=== PATIENT | female | born 1945 | race Caucasian/White ===

== ENCOUNTER → 2020-01-17 09:26 | Outpatient (BNVA) | payer MEDICARE, SELFPAY | PROVIDERS: PCP Internal Medicine; Referring Provider Internal Medicine; Visit Provider Hospitalist | DX: R91.8 Other nonspecific abnormal finding of lung field (principal); J30.9 Allergic rhinitis, unspecified | CPT/HCPCS: 99214 ==

== ENCOUNTER → 2021-08-27 10:52 | Outpatient (BNVA) | payer MEDICARE, SELFPAY | PROVIDERS: PCP Internal Medicine; Visit Provider Hospitalist | DX: R91.8 Other nonspecific abnormal finding of lung field (principal); R05.9 Cough, unspecified; J30.9 Allergic rhinitis, unspecified | CPT/HCPCS: 99212 ==

== ENCOUNTER 2021-09-10 08:42 | Outpatient (REF) | payer MEDICARE, SELFPAY ==
--- NOTE | ~2021-09-10 | US_ITS ---
EXAMINATION: US ABDOMEN LIMITED CLINICAL INFORMATION: Liver disease, unspecified. COMPARISON: CT chest 08/13/2021 and 12/26/2019. TECHNIQUE: Real-time imaging of the right upper quadrant abdominal viscera. FINDINGS: PANCREAS: Normal. LIVER: The liver is normal in size. The liver contour is normal. There is a left hepatic lobe solid, hypoechoic lesion measuring 2.7 x 1.9 x 2.5 cm with vascular flow. No additional lesions are seen. There is no intrahepatic biliary duct dilatation seen. GALLBLADDER: Normal. The gallbladder is physiologically distended without evidence of stones, sludge, polyps, wall thickening or pericholecystic fluid. COMMON BILE DUCT: Normal in caliber measuring 0.2 cm in diameter. RIGHT KIDNEY: Normal. No hydronephrosis. No renal calculi or focal parenchymal lesions. The kidney measures 10.2 cm in maximum dimension. FREE FLUID: None. US/US abdomen limited IMPRESSION: Solid, hypoechoic lesion of the left hepatic lobe measuring 2.7 cm. On the previous CT chest of 08/13/2021 it measured 2.5 cm. It does not have characteristics of a benign lesion such as a hemangioma. Recommend further evaluation with MRI abdomen with and without contrast.
== END 2021-09-10 08:43 | disposition home or self-care (01) ==
LOC: HO.US 08:42
PROVIDERS: Absent Provider Internal Medicine; PCP Internal Medicine; Visit Provider Hospitalist
DX: K76.9 Liver disease, unspecified (principal)
CPT/HCPCS: 76705

== ENCOUNTER 2022-01-20 08:59 | Outpatient (REF) | payer MEDICARE, SELFPAY ==
--- NOTE | ~2022-01-20 | CT_ITS ---
EXAMINATION: CT CHEST WITHOUT CONTRAST CLINICAL INFORMATION: Follow-up pulmonary nodules COMPARISON: Previous chest CT August 2021 TECHNIQUE: Multidetector volumetric CT imaging of the chest was done. Axial MIP volume rendering provided. Sagittal and coronal reformatted images were obtained. This CT examination was performed using dose optimization techniques as appropriate, variously including the following: *Automated exposure control *Adjustment of mA and/or kV according to patient size (this includes techniques or standardized protocols for targeted exams where dose is matched to indication/reason for exam; i.e. extremities or head) *Use of iterative reconstruction technique DLP: 110 mGy-cm FINDINGS: LUNGS: There is biapical pleural and parenchymal scarring. The bilateral pulmonary nodules are stable. Largest pulmonary nodule is a 7 mm right lower lobe nodule axial image 312 series 7. This is triangular in shape and may represent an intrapulmonary lymph node. No new pulmonary nodule. No endobronchial or endotracheal lesion. MEDIASTINUM: The mediastinum is normal. CORONARY ARTERY CALCIFICATION: Mild PLEURA: There is no pleural effusion. No pleural mass or thickening. AXILLA: No lymphadenopathy. Bilateral breast implants. UPPER ABDOMEN: New postsurgical changes to the left lobe of the liver. OSSEOUS STRUCTURES: Unremarkable. CT/CT chest wo IV con IMPRESSION: Stable biapical pleural and parenchymal scarring. Stable pulmonary nodules. New postsurgical changes to the left lobe of the liver. Fleischner guidelines were followed.
== END 2022-01-20 09:00 | disposition home or self-care (01) ==
LOC: HO.CT 08:59
PROVIDERS: PCP Internal Medicine; Visit Provider Hospitalist
DX: R91.8 Other nonspecific abnormal finding of lung field (principal)
CPT/HCPCS: 71250

== ENCOUNTER → 2022-02-19 10:18 | Outpatient (BNVA) | payer MEDICARE, SELFPAY | PROVIDERS: PCP Internal Medicine; Visit Provider Hospitalist | DX: R91.8 Other nonspecific abnormal finding of lung field (principal); J30.9 Allergic rhinitis, unspecified; R05.9 Cough, unspecified | CPT/HCPCS: 99212 ==

== ENCOUNTER 2023-07-06 10:25 | Outpatient (AMB) | payer MEDICARE, SELFPAY ==
--- NOTE | 2023-07-06 10:33 | A.OFFVIS_ITS ---
Intake Vital Signs 07/06/23 10:34 Height 5 ft 5 in Weight 129 lb BMI 21.5 BP 128/70 Blood Pressure Location Lt brachial Position Sitting Pulse 88 Pulse Source Pulse Oximeter Pulse Oximetry (%) 97 Oxygen Delivery Method Room Air Intake Visit Reasons: Pulmonary nodule Spiral Machine Operator Required: No Allergies amoxicillin Allergy (Mild, Verified 07/06/23 10:36) Swelling lips and tongue lisinopril Adverse Reaction (Severe, Verified 07/06/23 10:39) Swelling Aspirin Allergy (Mild, Uncoded 07/06/23 10:36) Dehydrate and GI Bleed Creon 10 Allergy (Mild, Uncoded 07/06/23 10:36) votmitting Mold Allergy (Mild, Uncoded 07/06/23 10:36) Hives HPI HPI Comments History of Present Illness Details The patient is a 77-year-old woman with known history of pulmonary nodules. Overall the patient has been doing well from a respiratory status. Denies any shortness of breath or coughing. Unfortunately over the summer she did develop significant abdominal discomfort. She was admitted to [facility] with colitis. She is following up with GI for this. She did have a CT scan of the abdomen with lung cuts that appeared to be normal. In addition to that she did undergo a CT scan of the chest to follow-up pulmonary nodules. They appear to be stable when compared to CT scans from 2017. the largest nodule measuring 5 mm. Findings are reassuring the nodules are likely to be benign. 08/27/2021 the patient is here for a pulmonary follow-up visit. Overall she continues to do well. Denies any significant shortness of breath. She does have intermittent coughing. The cough tends to be nonproductive in nature. Seems to be getting better. She is on RAMON-inhibitor and she did discuss with her primary care did regarding switching it regarding changing to a different agent. But it was decided just to keep her on the Ramon inhibitors is a better medication for her. we did review her recent CT scan of the chest which is reassuring without any evidence of any airway disease to explain her cough. Most of her pulmonary nodules appear to be stable. She does have a triangular shaped pulmonary nodule in the right lower lobe that appeared to be slightly increased in size to 7 mm. Radiology did recommend a close follow-up. In addition to that it was noted that she did have a hypoattenuation in the liver suggesting Density. Radiology did recommend getting ultrasound of the liver. I will go ahead and request it. 02/19/2022 the patient is here for a pulmonary follow-up visit. Since we last spoke she underwent an ultrasound of the liver which demonstrated a lesion. Subsequently was diagnosed with hepatocellular carcinoma and she did undergo surgery. The patient now is completing 8 cycles of chemotherapy. She does have issues with neuropathy and nausea. She is working to her symptoms. Denies any significant shortness of breath O she has been fatigued. The patient has had some weight loss as well. She did undergo a CT scan of the chest recently to follow-up pulmonary nodules. Appears that her pulmonary nodules have not changed there is stable. In view of her new diagnosis of hepatocellular carcinoma will go ahead and repeat the CT scan again in 1 year. If however the patient develops any new or concerning symptoms she is to call the office for an earlier assessment. 07/06/2023 the patient is here for a pulmo nary follow-up visit. Overall the patient has been doing very well. She did complete her chemotherapy after her surgery for hepatocellular carcinoma. She is not being followed every [address] scan of the chest and abdomen. She has underlying pulmonary nodules. The largest nodule measuring 7 mm in size. As not changed for more than 2 years. Unlikely to be related to the malignant process although will continue to be monitored every 6 months by her oncologist in [place]. From a respiratory status the patient is doing well she does take beta you denies any cough or wheezing. The patient does have increased heart rate. It has not clear why she has sinus tachycardia. I did recommend once her follow-up with her oncologist is okay that she request a referral for cardiology evaluation to further address the persistent tachycardia. She will follow-up in a year's time. If she is doing well she can always follow-up as needed as well. [facility] Medical History (Updated 07/06/23 @ 10:51 by Tevin Phillips MD) Hepatocellular carcinoma Liver lesion Cough Chronic allergic rhinitis Colitis Pulmonary nodules Family History (Updated 01/17/20 @ 10:13 by Tevin Phillips MD) Father No problems noted. Social History (Updated 08/27/21 @ 11:06 by Daniela Bajwa Lou) Patient Tobacco Use Status: Never used Tobacco Review of Systems Const Denies night sweats and Denies weight loss ENT Denies change in voice, Denies lip swelling, Denies mouth pain, Reports nasal congestion, Reports nasal discharge and Denies tongue swelling Card Denies chest pain Resp Denies cough GI Denies abdominal pain and Reports nausea Musc Denies no additional complaints Neuro Denies Neuro-related abnormal movements Psych Denies no additional complaints Roberto/Lymph Denies easy bleeding and Denies lymphadenopathy Aller/Immun Denies lip swelling and Denies tongue swelling Physical Exam Vital Signs: Last Vital Signs Pulse 88 07/06/23 10:34 BP 128/70 07/06/23 10:34 Pulse Ox 97 07/06/23 10:34 Oxygen Delivery Method Room Air 07/06/23 10:34 BMI result Body Mass Index 21.5 Const General: alert HEENT General nose exam: Abnormal external nose present and Nasal discharge present Eyes Pupils: Equal, round and reactive pupils present Neck Neck: Yes normal visual inspection, Yes full ROM and Yes no lymphadenopathy Chest Chest palpation & inspection: normal inspection of the chest Resp Auscultation: clear to auscultation bilaterally Cardio Rate: regular rate Rhythm: regular rhythm Heart sounds: S1 normal heart sound present and S2 normal heart sound present GI Palpation (GI): Soft to palpation and nontender Auscultation: normal bowel sounds General: Yes no CVA tenderness Back/Spine/Pelvis Back: no CVA tenderness Skin General skin exam: rashes and/or lesions noted Neuro Cranial nerves: Yes Equal, round and reactive pupils present Extrem General: Yes no clubbing, cyanosis or edema Assessment & Plan Assessment & Plan (1) Pulmonary nodules: Code(s): R91.8 - Other nonspecific abnormal finding of lung field (2) Chronic allergic rhinitis: Code(s): J30.9 - Allergic rhinitis, unspecified Plan: Nasal rinsing (3) Cough: Code(s): R05 - Cough Qualifiers: Cough type: chronic Qualified Code(s): R05.3 - Chronic cough Plan CT chest every 6 months as per her Oncologist Exercise regimen F/U in 1 year or PRN Coding Level of Care Code Est Pt Level 4 (49727) Diagnoses Pulmonary nodules R91.8 Chronic allergic rhinitis J30.9 Chronic cough R05.3 Cough type: chronic Time Spent (min) 16
[2023-07-06 10:34] VITALS: BP 128/70; PULSE 88; O2SAT 97; BMI 21.5
== END 2023-07-06 11:01 | disposition home or self-care (01) ==
PROVIDERS: PCP Internal Medicine; Referring Provider Internal Medicine; Visit Provider Hospitalist
DX: R91.8 Other nonspecific abnormal finding of lung field (principal); J30.9 Allergic rhinitis, unspecified; R05.3 Chronic cough
CPT/HCPCS: 99214

== ENCOUNTER → 2023-07-06 10:25 | Outpatient (BNVA) | payer MEDICARE, SELFPAY | PROVIDERS: PCP Internal Medicine; Visit Provider Hospitalist | DX: R91.8 Other nonspecific abnormal finding of lung field (principal); J30.9 Allergic rhinitis, unspecified; R05.3 Chronic cough | CPT/HCPCS: 99212 ==

== ENCOUNTER 2024-09-29 08:21 | Outpatient (AMB) | payer MEDICARE, SELFPAY ==
[2024-09-29 08:24] VITALS: BP 126/70; PULSE 89; O2SAT 97; BMI 22.0
--- NOTE | 2024-09-29 08:24 | A.OFFVIS_ITS ---
Vital Signs 09/29/24 08:24 Height 5 ft 5 in Weight 132 lb 4.438 oz BMI 22.0 BP 126/70 Blood Pressure Location Lt brachial Position Sitting Pulse 89 Pulse Source Pulse Oximeter Pulse Oximetry (%) 97 Oxygen Delivery Method Room Air Intake Visit Reasons: Review CT scans Physician Assistant Surgery Required: No Accompanied by: Self / Same As Patient Allergies amoxicillin Allergy (Mild, Verified 09/29/24 08:29) Swelling lips and tongue lisinopril Adverse Reaction (Severe, Verified 09/29/24 08:29) Swelling Aspirin Allergy (Mild, Uncoded 07/06/23 10:36) Dehydrate and GI Bleed Creon 10 Allergy (Mild, Uncoded 07/06/23 10:36) votmitting Mold Allergy (Mild, Uncoded 07/06/23 10:36) Hives HPI Comments Details: The patient is a 78-year-old woman with known history of pulmonary nodules. Overall the patient has been doing well from a respiratory status. Denies any shortness of breath or coughing. Unfortunately over the summer she did develop significant abdominal discomfort. She was admitted to [facility] with colitis. She is following up with GI for this. She did have a CT scan of the abdomen with lung cuts that appeared to be normal. In addition to that she did undergo a CT scan of the chest to follow-up pulmonary nodules. They appear to be stable when compared to CT scans from 2017. the largest nodule measuring 5 mm. Findings are reassuring the nodules are likely to be benign. 08/27/2021 the patient is here for a pulmonary follow-up visit. Overall she continues to do well. Denies any significant shortness of breath. She does have intermittent coughing. The cough tends to be nonproductive in nature. Seems to be getting better. She is on RAMON-inhibitor and she did discuss with her primary care did regarding switching it regarding changing to a different agent. But it was decided just to keep her on the Ramon inhibitors is a better medication for her. we did review her recent CT scan of the chest which is reassuring without any evidence of any airway disease to explain her cough. Most of her pulmonary nodules appear to be stable. She does have a triangular shaped pulmonary nodule in the right lower lobe that appeared to be slightly increased in size to 7 mm. Radiology did recommend a close follow-up. In addition to that it was noted that she did have a hypoattenuation in the liver suggesting Density. Radiology did recommend getting ultrasound of the liver. I will go ahead and request it. 02/19/2022 the patient is here for a pulmonary follow-up visit. Since we last spoke she underwent an ultrasound of the liver which demonstrated a lesion. Subsequently was diagnosed with hepatocellular carcinoma and she did undergo surgery. The patient now is completing 8 cycles of chemotherapy. She does have issues with neuropathy and nausea. She is working to her symptoms. Denies any significant shortness of breath O she has been fatigued. The patient has had some weight loss as well. She did undergo a CT scan of the chest recently to follow-up pulmonary nodules. Appears that her pulmonary nodules have not hugo nged there is stable. In view of her new diagnosis of hepatocellular carcinoma will go ahead and repeat the CT scan again in 1 year. If however the patient develops any new or concerning symptoms she is to call the office for an earlier assessment. 07/06/2023 the patient is here for a pulmonary follow-up visit. Overall the patient has been doing very well. She did complete her chemotherapy after her surgery for hepatocellular carcinoma. She is not being followed every [address] scan of the chest and abdomen. She has underlying pulmonary nodules. The largest nodule measuring 7 mm in size. As not changed for more than 2 years. Unlikely to be related to the malignant process although will continue to be monitored every 6 months by her oncologist in [place]. From a respir atory status the patient is doing well she does take beta you denies any cough or wheezing. The patient does have increased heart rate. It has not clear why she has sinus tachycardia. I did recommend once her follow-up with her oncologist is okay that she request a referral for cardiology evaluation to further address the persistent tachycardia. She will follow-up in a year's time. If she is doing well she can always follow-up as needed as well. 09/29/2024 the patient is here for pulmonary follow-up visit. Overall she is doing very well. She continues to follow closely with oncology at [place]. Her last CT scan of the chest was done July 2024. I did look at the report. The patient has multiple pulmonary nodules. Actually the largest nodule measuring a cm in size. It was compared to the CAT scan from 2023 demonstrating no significant change. I am going to download the city to also look at it myself. Addition to that she other other subcentimeter pulmonary nodules identified. The patient did have a cold about 3 weeks ago. She did go to her primary care and was given antibiotics doxycycline and also prednisone. She also had a chest x-ray. The x-ray I personally reviewed it. However, due to her breast prosthesis difficult to identify any airspace disease. Overall the patient is doing better. She still has a cough primarily at nighttime. Likely an upper airway cough syndrome. I prescribed her Tessalon Perles in addition to ipratropium nasal spray. She does not have a history of glaucoma. Overall she is doing well she will continue getting CAT scans every 6 months as per her Oncology because of the hepatocellular carcinoma. If the patient has any issues she will call otherwise will follow-up in a year's time. [facility] Medical History (Updated 07/06/23 @ 10:51 by Tevin Phillips MD) Hepatocellular carcinoma Liver lesion Cough Chronic allergic rhinitis Colitis Pulmonary nodules Family History (Updated 01/17/20 @ 10:13 by Tevin Phillips MD) Father No problems noted. Social History Patient Tobacco Use Status: Never used Tobacco Review of Systems Const Denies night sweats and Denies weight loss ENT Denies change in voice, Denies lip swelling, Denies mouth pain, Reports nasal congestion, Reports nasal discharge and Denies tongue swelling Card Denies chest pain Resp Denies cough GI Denies abdominal pain and Reports nausea Musc Denies no additional complaints Neuro Denies Neuro-related abnormal movements Psych Denies no additional complaints Roberto/Lymph Denies easy bleeding and Denies lymphadenopathy Aller/Immun Denies lip swelling and Denies tongue swelling Physical Exam Vital Signs: Last Vital Signs Pulse 89 09/29/24 08:24 BP 126/70 09/29/24 08:24 Pulse Ox 97 09/29/24 08:24 Oxygen Delivery Method Room Air 09/29/24 08:24 BMI result Body Mass Index 22.0 Const General: alert HEENT General nose exam: Abnormal external nose present and Nasal discharge present Eyes Pupils: Equal, round and reactive pupils present Neck Neck: Yes normal visual inspection, Yes full ROM and Yes no lymphadenopathy Chest Chest palpation & inspection: normal inspection of the chest Resp Auscultation: clear to auscultation bilaterally Cardio Rate: regular rate Rhythm: regular rhythm Heart sounds: S1 normal heart sound present and S2 normal heart sound present GI Palpation (GI): Soft to palpation and nontender Auscultation: normal bowel sounds General: Yes no CVA tenderness Back/Spine/Pelvis Back: no CVA tenderness Skin General skin exam: rashes and/or lesions noted Neuro Cranial nerves: Yes Equal, round and reactive pupils present Extrem General: Yes no clubbing, cyanosis or edema Assessment & Plan Assessment & Plan (1) Pulmonary nodules: Code(s): R91.8 - Other nonspecific abnormal finding of lung field Category: Medical (2) Chronic allergic rhinitis: Code(s): J30.9 - Allergic rhinitis, unspecified Category: Medical Plan: Nasal rinsing (3) Cough: Code(s): R05 - Cough Category: Medical Qualifiers: Cough type: chronic Qualified Code(s): R05.3 - Chronic cough Plan CT chest as per her Oncologist atrovent nasal spray as needed Benzonates as needed for cough F/U in 1 year or PRN Medications: New benzonatate 200 mg PO BID PRN 30 caps 6RF cough 30 days ipratropium bromide administer into each nostril 2 sprays intranasal TID PRN 15 mL 6RF allergy symptoms Coding Level of Care Code Est Pt Level 4 (60768) Diagnoses Pulmonary nodules R91.8 Chronic allergic rhinitis J30.9 Chronic cough R05.3 Cough type: chronic Time Spent (min) 16
--- OUTSIDE RECORDS SUMMARY | 2024-09-29 08:35 | XMS_ITS | Clinical Summary ---
Author Organization [facility] Address [address] [place] [address] Care Team Providers Care Construction Stonemason Name Role Phone Ramon Ellison MD Primary Care Provider [phone] Allergies Active Allergy Reactions Criticality Noted Date Comments Amoxicillin Swelling Medium 10/18/2021 Aspirin Nausea Only,GI Intolerance/Nausea/V omiting Low 10/18/2021 History of GI Bleed Pancrelipase (Kye-[id number]) Unknown/Patient and Family Unable to Define Medium 10/18/2021 CREON 10 dehydration Dexamethasone GI Bleeding High 10/18/2021 Latex Rash/Dermatitis,Shor tness Of Breath High 10/18/2021 Lisinopril Angioedema High 03/21/2022 Throat and Face Medications amitriptyline (ELAVIL) 25 MG tablet Take 1 tablet (25 mg total) by mouth every evening. 2 Active atorvastatin (LIPITOR) 10 MG tablet Take 1 tablet (10 mg total) by mouth every evening. Active metoPROLOL SUCCINATE (TOPROL-XL) 25 MG 24 hr tablet Take 1 tablet (25 mg total) by mouth every morning. 2 Active CALCIUM PO Take 2 tablets by mouth every day with lunch. Active cycloSPORINE (RESTASIS) 0.05 % ophthalmic emulsion Administer 1 drop to both eyes every evening. Active levocetirizine (XYZAL) 5 MG tablet Take 1 tablet (5 mg total) by mouth every evening. 2 Active cholecalciferol (CHOLECALCIFERO L) 10 MCG (400 UNIT) tablet Take 1 tablet (400 Units total) by mouth every evening. 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 Travel 07/26/2024 10:20 AM EDT - 07/26/2024 11:59 PM EDT Hospital Encounter [facility] Radiology [facility] [address] [place] [phone] Kevin Vazquez MD Cholangiocarcinoma (HCC); Hepatocellular carcinoma (HCC); Lung nodule Discharge Disposition: Home or Self Care 07/26/2024 Travel from Last 3 Months Family History Medical History Relation Name Comments Pancreatic cancer Father Relation Name Status Comments Father Social History Tobacco Use Types Packs/Day Years Used Date Smoking Tobacco: Never Smokeless Tobacco: Never Alcohol Use Standard Drinks/Week Comments Never 0 (1 standard drink = 0.6 oz pur e alcohol) AUDIT-C Answer Date Recorded Q1: How often do you have a drink containing alcohol? Never 11/15/2021 Q2: How many drinks containi ng alcohol do you have on a typical day when you are drinking? Patient does not drink Q3: How often do you have si x or more drinks on one occasion? Never 11/15/2021 Comments No Sex and Gender Information Value Date Recorded Sex Assigned at Female 10/20/2022 2:28 PM EDT Legal Sex Female 2:37 PM EDT Gender Identity Female 10/20/2022 2:28 PM EDT Sexual Orientation Heterosexual (straight) 10/20 2:28 PM EDT Last Filed Vital Signs Vital Sign Reading Time Taken Comments Blood Pressure 161/84 08/12/2024 1:58 PM EDT Pulse 97 08/12/2024 1:58 PM EDT Temperature 36.2 C (97.2 F) 08/12/2024 1:58 PM EDT Respiratory Rate 14 08/12/2024 1:58 PM EDT Oxygen Saturation 96% 08/12/2024 1:58 PM EDT Inhaled Oxygen Concentration - - Weight 59.7 kg (131 lb 11.2 oz) 08/12/2024 1:58 PM EDT Height 165 cm (5' 4.96 ) 02/12/2024 12: 57 PM EST Body Mass Index 21.94 02/12/2024 12:57 PM EST Plan of Treatment Upcoming Encounters Date Type Department Care Team (Late st Contact Info) Description 01/30/2025 11:00 AM EDT Appointment [facility] Radiology [facility] [address] [place] [address] Kevin Vazquez MD [address] [place] [address] 02/14/2025 11:15 AM EST Office Visit [facility] Medical Oncology at [address] [phone] Kevin Vazquez MD [address] [place] [address] Health Maintenance Due Date Last Done Comments DTaP/Tdap/Td Vaccines (1 - Tdap) 12/24/1966 Pneumococcal Vaccines 50+ (1 of 2 - PCV) 12/24/1966 Zoster (Shingles) Vaccine (1 of 2) 12/24/1966 DXA Bone Density (Females,Ages 65 and older) 12/24/2012 RSV Vaccine 60 years and older and Patients (1 - 1-dose 75+ series) 12/24/2022 COVID-19 Vaccine ( season) 2023 08/19/2021, 02/18/2021, 07/06/2020, Additional history exists Influenza Vaccine 11/04/2024 01/04/2020, , 01/08/2018, Additional history exists Hepatitis C Virus Screening Completed 10/22/2021 Hepatitis B Vaccines Aged Out No long er eligible based on patient's age to complete this topic Procedures Procedure Name Priority Date/Time Associated Diagnosis Comments CT CHEST/ABDOMEN+PELVIS W/CONTRAST W/PO Routine 07/26/2024 10:49 AM EDT Cholangiocarcinoma (HCC) Hepatocellular carcinoma (HCC) Lung nodule AFP TUMOR MARKER Routine 07/15/2024 9:00 AM EDT Cholangiocarcinoma (HCC) CA 19-9 Routine 07/15/2024 9:00 AM EDT Cholangiocarcinoma (HCC) COMPLETE BLOOD COUNT, WITH DIFFERENTIAL Routine 07/15/2024 9:00 AM EDT Cholangiocarcinoma (HCC) COMPREHENSIVE METABOLIC PANEL Routine 07/15/2024 9:00 AM EDT Cholangiocarcinoma (HCC) HEPATITIS PANEL, ACUTE Routine 11:34 AM EDT Liver mass, left lobe from Last 3 Months or Most Recently Relevant to Health Maintenance Results * CT Chest/abdomen+pelvis w/contrast w/po (07/26/2024 10:49 AM EDT) Anatomical Region Laterality Modality Chest, Abdomen, Pelvis Computed Tomography 07/26/2024 11:1 9 AM EDT Impressions 07/26/2024 11:53 AM EDT Stable examination of the chest abdomen and pelvis when compared to a prior CT of the chest dated 02/02/[address] of the chest abdomen and pelvis dated 07/17/2023 Narrative 07/26/2024 11:53 AM EDT EXAM: CT CHEST/ABDOMEN+PELVIS W/CONTRAST W/PO on 07/26/2024 10:21 AM CLINICAL HISTORY: SUHAIL DOCKERY is a 78 years old patient with a submitted history of cholangiocarcinoma/hepatocellular carcinoma and lung nodules, restage. ADDITIONAL HISTORY: Cholangiocarcinoma (HCC), Hepatocellular carcinoma (HCC), Lung nodule COMPARISONS: MRI abdomen 02/02/2024 CT chest abdomen and pelvis 07/17/2023 CT chest 02/02/2024 INTRAVENOUS CONTRAST: 100 mL Omnipaque 350 (Iohexol 755 mg/ml) ORAL AGENT: Readi-cat (barium sulfate) PREMEDICATION: None ADVERSE REACTION/EVENT: No immediate adverse reaction or event. TECHNIQUE: Multiple, contiguous, axial, CT images of the chest, abdomen, and pelvis were acquired with intravenous contrast. An oral agent was administered. Sagittal and coronal reformatted images are rendered from the axial dataset and interpreted. Iterative reconstruction was employed to reduce ionizing radiation exposure to the patient. FINDINGS: THYROID: Unremarkable CHEST WALL: Unremarkable. AXILLAE: No adenopathy. TRACHEA/BRONCHI: Unremarkable. LUNGS: Unremarkable. MEDIASTINUM: Unchanged unenlarged level 2R lymph node measures 0.6 cm Series 4, image 131, 0.2 cm subpleural pulmonary nodule right middle lobe, UNCHANGED Series 4, image 145, 0.2 cm subpleural pulmonary nodule right middle lobe, UNCHANGED Series 4, image 154, 1.0 x 0.9 cm superior segment right lower lobe pulmonary nodule, UNCHANGED HEART: No cardiomegaly. No pericardial effusion. THORACIC AORTA AND GREAT VESSELS: Unremarkable PULMONARY VESSELS: Unremarkable PLEURA: No pleural effusion. ESOPHAGUS: Collapsed without obvious abnormality STOMACH: Unremarkable. SMALL BOWEL: Unremarkable LARGE BOWEL: Unremarkable. APPENDIX: Appendix is not visible. No right lower quadrant inflammation to suggest acute appendicitis. LIVER: The hepatic contour, size, and attenuation is normal. GALLBLADDER: Unremarkable. BILIARY: Unremarkable. PANCREAS: Unremarkable. SPLEEN: Multiple hypervascular lesions are seen scattered through the spleen measuring up to 2.1 x 2.0 cm previously measuring 1.7 x 1.6 cm on an MRI dated 02/02/2024 and 2.1 x 1.[address] dated 07/17/2023. At least 6 other smaller lesions are seen scattered through the spleen. ADRENAL GLANDS: Unremarkable. RIGHT KIDNEY/URETER: Unremarkable LEFT KIDNEY/URETER: Unremarkable BLADDER: Unremarkable UTERUS: The uterus is not visualized and may be surgically absent or atrophic. OVARIES: Unremarkable PORTAL VEIN: Unremarkable HEPATIC VEINS: Unremarkable IVC: Unremarkable ABDOMINAL AORTA: Unremarkable. MESENTERIC VESSELS: Unremarkable ILIOFEMORAL VESSELS: Unremarkable LYMPH NODES: Unremarkable MESENTERY: Unremarkable PERITONEUM: No pneumoperitoneum. No ascites. ABDOMINAL WALL: Unremarkable. BONES: Degenerative changes noted. No destructive lesion. ADDITIONAL: None. Procedure Note Mp Hahn MD - 07/26/2024 EXAM: CT CHEST/ABDOMEN+PELVIS W/CONTRAST W/PO on 07/26/2024 10:21 AM CLINICAL HISTORY: SUHAIL DOCKERY is a 78 years old patient with a submitted history ofcholangiocarcinoma/hepatocellular carcinoma and lung nodules, restage. ADDITIONAL HISTORY: Cholangiocarcinoma (HCC), Hepatocellular carcinoma (HCC), Lung nodule COMPARISONS: MRI abdomen 02/02/2024 CT chest abdomen and pelvis 07/17/2023 CT chest 02/02/2024 INTRAVENOUS CONTRAST: 100 mL Omnipaque 350 (Iohexol 755 mg/ml) ORAL AGENT: Readi-cat (barium sulfate) PREMEDICATION: None ADVERSE REACTION/EVENT: No immediate adverse reaction or event. TECHNIQUE: Multiple, contiguous, axial, CT images of the chest, abdomen, and pelviswere acquired with intravenous contrast. An oral agent was administered.Sagittal and coronal reformatted images are rendered from the axialdataset and interpreted. Iterative reconstruction was employed to reduce ionizing radiation exposure to thepatient. FINDINGS: THYROID: Unremarkable CHEST WALL: Unremarkable. AXILLAE: No adenopathy. TRACHEA/BRONCHI: Unremarkable. LUNGS: Unremarkable. MEDIASTINUM: Unchanged unenlarged level 2R lymph node measures 0.6 cm Series 4, image 131, 0.2 cm subpleural pulmonary nodule right middle lobe,UNCHANGED Series 4, image 145, 0.2 cm subpleural pulmonary nodule right middle lobe,UNCHANGED Series 4, image 154, 1.0 x 0.9 cm superior segment right lower lobepulmonary nodule, UNCHANGED HEART: No cardiomegaly. No pericardial effusion. THORACIC AORTA AND GREAT VESSELS: Unremarkable PULMONARY VESSELS: Unremarkable PLEURA: No pleural effusion. ESOPHAGUS: Collapsed without obvious abnormality STOMACH: Unremarkable. SMALL BOWEL: Unremarkable LARGE BOWEL: Unremarkable. APPENDIX: Appendix is not visible. No right lower quadrant inflammationto suggest acute appendicitis. LIVER: The hepatic contour, size, and attenuation is normal. GALLBLADDER: Unremarkable. BILIARY: Unremarkable. PANCREAS: Unremarkable. SPLEEN: Multiple hypervascular lesions are seen scattered through thespleen measuring up to 2.1 x 2.0 cm previously measuring 1.7 x 1.6 cm elda MRI dated 02/02/2024 and 2.1 x 1.[address] dated 07/17/2023. Atleast 6 other smaller lesions are seen scattered through the spleen. ADRENAL GLANDS: Unremarkable. RIGHT KIDNEY/URETER: Unremarkable LEFT KIDNEY/URETER: Unremarkable BLADDER: Unremarkable UTERUS: The uterus is not visualized and may be surgically absent oratrophic. OVARIES: Unremarkable PORTAL VEIN: Unremarkable HEPATIC VEINS: Unremarkable IVC: Unremarkable ABDOMINAL AORTA: Unremarkable. MESENTERIC VESSELS: Unremarkable ILIOFEMORAL VESSELS: Unremarkable LYMPH NODES: Unremarkable MESENTERY: Unremarkable PERITONEUM: No pneumoperitoneum. No ascites. ABDOMINAL WALL: Unremarkable. BONES: Degenerative changes noted. No destructive lesion. ADDITIONAL: None. IMPRESSION: Stable examination of the chest abdomen and pelvis when compared to aprior CT of the chest dated 02/02/[address] of the chest abdomen andpelvis dated 07/17/2023 us Kevin Vazquez MD [facility] [place] CT ORDERABLES Final Result * (ABNORMAL) Complete Blood Count, with Differential (07/15/2024 9:00 AM EDT) White Blood Cell Count 9.3 3.8 - 10.8 Thousand/ uL [employer] [facility] [facility] Red Blood Cell Count 4.96 3.80 - 5.10 Million/u L [employer] [facility] [facility] Hemoglobin 14.9 11.7 - 15.5 g/dL [employer] [facility] [facility] Hematocrit 44.7 35.0 - 45.0 % [employer] MCV 90.1 80.0 - 100.0 fL [employer] [facility] [facility] MCH 30.0 27.0 - 33.0 pg [employer] MCHC 33.3 32.0 - 36.0 g/dL [employer] [facility] Comment: For adults, a slight decrease in the calculated MCHC value (in the range of 30 to 32 g/dL) is most likely not clinically significant; however, it should be interpreted with caution in correlation with other red cell parameters and the patient's clinical condition. RDW 13.4 11.0 - 15.0 % [facility] Platelet Count 175 140 - 400 Thousand/ uL [employer] MPV 11.2 7.5 - 12.5 fL [employer] Abs Neutrophils Auto 3,013 1,500 - 7,800 cells/uL [employer] [facility] [facility] Abs Lymphocytes Auto 5,617(H) 850 - 3,900 cells/uL [employer] [facility] Abs Monocytes Auto 567 200 - 950 cells/uL [facility] Abs Eosinophils Auto 74 15 - 500 cells/uL [facility] Abs Basophils Auto 28 0 - 200 cells/uL [facility] Neutrophils Auto 32.4 % [facility] Lymphocytes Auto 60.4 % [facility] Monocytes Auto 6.1 % [facility] Eosinophils Auto 0.8 % [facility] Basophils Auto 0.3 % [facility] Blood Blood specimen / Unknown 07/15/2024 9:00 AM EDT 07/15/2024 9:00 AM EDT Narrative [facility] - 07/20/2024 11:01 AM EDT FASTING:NO FASTING: NO Kevin Vazquez MD LAB BLOOD ORDERABLES Final Res ult Performing Organization Address [facility] de Phone Number [facility] [address] [place] [phone] * CA 19-9 (07/15/2024 9:00 AM EDT) Pathologist [facility] CA 19-9 7 <34 U/mL [employer] Comment: This test was performed using the Siemens chemiluminescent method. Values obtained from different assay methods cannot be used interchangeably. CA 19-9 levels, regardless of value, should not be interpreted as absolute evidence of the presence or absence of disease. Blood Blood specimen / Unknown 07/15/2024 9:00 AM EDT 07/15/2024 9:00 AM EDT Narrative [facility] - 07/20/2024 11:01 AM EDT FASTING:NO FASTING: NO Kevin Vazquez MD LAB BLOOD ORDERABLES Final Res ult Performing Organization Address [facility] de Phone Number [facility] [address] [place] [phone] * Alpha-Fetoprotein (AFP), Tumor Marker (07/15/2024 9:00 AM EDT) Pathologist [facility] Alpha-Fetoprotei n (AFP), Tumor Marker 5.1 ng/mL [employer] Comment: Reference Range: <6.1 The use of AFP as a tumor marker in females is not recommended. This test was performed using the Hubert Porfirio chemiluminescent method. Values obtained from different assay methods cannot be used interchangeably. AFP levels, regardless of value, should not be interpreted as absolute evidence of the presence or absence of disease. Blood Blood specimen / Unknown 07/15/2024 9:00 AM EDT 07/15/2024 9:00 AM EDT Narrative [facility] - 07/20/2024 11:01 AM EDT FASTING:NO FASTING: NO us Kevin Vazquez MD LAB BLOOD ORDERABLES Final Res ult [facility] [address] [place] [phone] * Comprehensive Metabolic Panel (07/15/2024 9:00 AM EDT) Pathologist [facility] Glucose 96 65 - 139 mg/dL [employer] Comment: Non-fasting reference interval Blood Urea Nitrogen (BUN) 15 7 - 25 mg/dL [employer] [facility] [facility] Creatinine 0.82 0.60 - 1.00 mg/dL [employer] [facility] [facility] Creatinine w/ eGFR 74 > OR = 60 mL/min/1. 73m2 [employer] BUN/Creatinine Ratio SEE NOTE: 6 - 22 (calc) [employer] Comment: Not Reported: BUN and Creatinine are within reference range. Sodium 141 135 - 146 mmol/L [employer] [facility] Potassium 4.1 3.5 - 5.3 mmol/L [employer] [facility] [facility] Chloride 102 98 - 110 mmol/L [employer] CO2 29 20 - 32 mmol/L [employer] Calcium 9.2 8.6 - 10.4 mg/dL [employer] [facility] Protein, Total 6.7 6.1 - 8.1 g/dL [employer] [facility] [facility] Albumin 4.6 3.6 - 5.1 g/dL [employer] [facility] [facility] Globulin 2.1 1.9 - 3.7 g/dL (calc) [employer] [facility] [facility] Albumin/Globuli n Ratio 2.2 1.0 - 2.5 (calc) [employer] Bilirubin, Total 0.5 0.2 - 1.2 mg/dL [employer] [facility] [facility] Alkaline Phosphatase 72 37 - 153 U/L [employer] [facility] [facility] Aspartate Aminotrans (AST) 24 10 - 35 U/L [employer] [facility] [facility] Alanine Aminotrans (ALT) 20 6 - 29 U/L [employer] [facility] [facility] Blood Blood specimen / Unknown 07/15/2024 9:00 AM EDT 07/15/2024 9:00 AM EDT Narrative [facility] - 07/20/2024 11:01 AM EDT FASTING:NO FASTING: NO us Kevin Vazquez MD LAB BLOOD ORDERABLES Final Res ult [facility] [address] [place] [phone] * Hepatitis Panel, Acute (10/22/2021 11:34 AM EDT) Hepatitis A Antibody IgM NON-REACT PARTH NON-REACT PARTH [employer] [facility] Comment: For additional information, please refer to http://[facility]/faq/DDY632 (This link is being provided for informational/ educational purposes only.) Hepatitis B Surface Ag Screen NON-REACT PARTH NON-REACT PARTH [facility] Hepatitis B Core Antibody IgM NON-REACT PATRH NON-REACT PARTH [employer] [facility] [facility] Hepatitis C Antibody NON-REACT PARTH NON-REACT PARTH [facility] Hepatitis C Antibody (s/co) 0.19 <1.00 [employer] [facility] Comment: HCV antibody was non-reactive. There is no laboratory evidence of HCV infection. In most cases, no further action is required. However, if recent HCV exposure is suspected, a test for HCV RNA (test code 89607) is suggested. For additional information please refer to http://[facility]/faq/LCM12y3 (This link is being provided for informational/ educational purposes only.) Blood specimen (specimen) Blood specimen / Unknown 10/22/2021 11:34 AM EDT 10/22/2021 11:34 AM EDT Narrative [facility] - 10/23/2021 1:44 PM EDT FASTING:NO FASTING: NO Carlitos Almeida MD LAB BLOOD ORDERABLES Final Res ult [facility] [address] [place] [address], [place] [address] from Last 3 Months or Most Recently Relevant to Health Maintenance Insurance MEDICARE PART A & B [facility] Advance Directives * Full Code (Latest Code Status on File) Date Activated Date Inactivated Comments 11/21/2021 7:04 PM * Full Code Date Activated Date Inactivated Comments 11/21/2021 6:31 AM 11/21/2021 7:04 PM Care Teams Construction Stonemason Relationship Specialty Start Date End Date Ramon Ellison MD [address] [place] [address] PCP - General Internal Medicine 02/02/23
== END 2024-09-29 08:47 | disposition home or self-care (01) ==
PROVIDERS: PCP Internal Medicine; Visit Provider Hospitalist
DX: R91.8 Other nonspecific abnormal finding of lung field (principal); J30.9 Allergic rhinitis, unspecified; R05.3 Chronic cough
CPT/HCPCS: 99214

== ENCOUNTER → 2024-09-29 08:21 | Outpatient (BNVA) | payer MEDICARE, SELFPAY | PROVIDERS: PCP Internal Medicine; Visit Provider Hospitalist | DX: R91.8 Other nonspecific abnormal finding of lung field (principal); J30.9 Allergic rhinitis, unspecified; R05.3 Chronic cough | CPT/HCPCS: 99212 ==